=== PATIENT | female | born 1965 | race Two or more races ===

== ENCOUNTER 2023-02-04 18:06 | Emergency (ER) | payer OTHER, SELFPAY ==
[2023-02-04 18:10] VITALS: BP 163/81; PULSE 84; RESP 18; TEMP 36.8; O2SAT 99; BMI 41.6
--- NOTE | 2023-02-04 18:14 | ED.LOWEXI1 ---
HPI - Extremity Injury (Lower) General Chief Complaint: Extremity Injury, Lower Stated Complaint: LT FOOT INJURY/FALL Time Seen by Provider: 02/04/23 18:13 History of Present Illness HPI Narrative: Patient is a 57-year-old female who presents to the emergency department for the evaluation of a left lower leg injury. 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 She reports pain inferior to the left knee throughout the entire lower leg. She has had previous surgery to her left ankle. She denies hitting her head and had no other associated injuries. She has been able to bear weight since falling. She is not on blood thinners. Related Data Previous Rx's Medication Instructions Recorded ketorolac 10 mg tablet 10 mg PO TID PRN pain #10 tabs 02/04/23 Allergies Allergy/AdvReac Type Severity Reaction Status Date / Time No Known Drug Allergies Allergy Verified 02/04/23 18:09 Review of Systems ROS Constitutional Denies: fever or chills Ears, nose, mouth, and throat Denies: neck pain Respiratory Denies: shortness of breath Gastrointestinal Denies: nausea or vomiting Musculoskeletal Reports: extremity pain; Denies: back pain or neck pain Integumentary/Breast Denies: rash Neurological Denies: headache Hematologic/Lymphatic Denies: easy bruising Exam Narrative Exam Narrative: Gen.: Awake, alert, in no distress Head: Normocephalic, atraumatic; no facial or dental injuries noted ENT: Moist mucous membranes Respiratory: No respiratory distress Extremities: Moves extremities equally, faint abrasion on the left anterior tibia, midshaft. Diffuse tenderness of the left foot, left ankle and left tibia. No obvious deformity. No significant swelling or ecchymosis noted. Well-healed surgical incision in the lateral aspect over the lateral malleolus of the left ankle. 2+ left DP pulse. Psych: Normal mood and affect Neuro: No focal neuro deficit Skin: Warm, dry, intact MDM - Extremity Injury (Lower) MDM Narrative Medical decision making narrative: X-rays of the left tibia, left ankle and left foot with no evidence of fracture or dislocation. Patient treated with Windber in the Emergency Room. She is placed in an Tomas wrap, Aircast and remains neurovascularly intact. Rest, ice, elevate. Follow-up with PCP and return to the Emergency Room if symptoms change or worsen. Medical Records Attestation: I reviewed the patient's medical records. Imaging Data XR ankle: Attestation: I have reviewed the pertinent imaging results. Radiologist's impression: Procedure: XR ankle LT min 3V EXAM: XR ankle LT min 3V HISTORY: Fall COMPARISON: None. TECHNIQUE: 3 view study FINDINGS: 2 metallic anchors are seen in the distal aspect of the fibula. Bony architecture is otherwise normal. Ankle mortise relationships are intact. Lateral soft tissue swelling is noted. There is a plantar calcaneal enthesophyte. IMPRESSION: No evidence for acute fracture or traumatic malalignment. Electronically authenticated by: Laina RUBIO Date: 02/04/2023 19:09 XR tibia: Attestation: I have reviewed the pertinent imaging results. Radiologist's impression: Procedure: XR tibia fibula LT 2V EXAM: XR tibia fibula LT 2V HISTORY: Fall COMPARISON: None. TECHNIQUE: AP and lateral views FINDINGS: 2 small metallic anchors are seen in the distal fibula. Bony architecture of the tibia and fibula is otherwise normal. Articulations at knee and ankle are intact. A 4 mm calcification is seen adjacent to the medial tibial spine at the knee. IMPRESSION: 4 mm calcification adjacent to the medial tibial spine, potentially an intra-articular loose body. No evidence for acute fracture or dislocation. Electronically authenticated by: Laina RUBIO Date: 02/04/2023 19:11 XR foot: Attestation: I have reviewed the pertinent imaging results. Radiologist's impression: Procedure: XR foot LT min 3V EXAM: XR foot LT min 3V HISTORY: Fall COMPARISON: None. TECHNIQUE: 3 view study FINDINGS: Overall bony architecture is normal. 2 small calyx anchors are seen in the distal fibula. Joint spaces of the foot are well-maintained. Forefoot soft tissue swelling is noted. IMPRESSION: No evidence for acute fracture or dislocation. Electronically authenticated by: Laina RUBIO Date: 02/04/2023 19:13 Discharge Plan Discharge Chief Complaint: Extremity Injury, Lower Clinical Impression: Left ankle sprain Patient Disposition: Home, Self-Care Time of Disposition Decision: 19:18 Condition: Good Prescriptions / Home Meds: New ketorolac 10 mg tablet 10 mg PO TID PRN (Reason: pain) Qty: 10 0RF Instructions: Ankle Sprain (ED), P.R.I.C.E. Treatment (ED) Stand Alone Forms: Portal Instructions Referrals: Physician,Non-Staff, [Primary Care Provider] - 1 week
--- NOTE | 2023-02-04 18:22 | XR_ITS ---
The [address] [address] Patient Name: GREGORY WINSLOW MRN: [id number] date: 1965 Sex: F Assigned Patient Location: ER Current Patient Location: ER Accession/Order Number: [id number] Exam Date: 02/04/2023 18:28 Report Date: 02/04/2023 19:11 At the request of: SABIHA SALCEDO Procedure: XR tibia fibula LT 2V EXAM: XR tibia fibula LT 2V HISTORY: Fall COMPARISON: None. TECHNIQUE: AP and lateral views FINDINGS: 2 small metallic anchors are seen in the distal fibula. Bony architecture of the tibia and fibula is otherwise normal. Articulations at knee and ankle are intact. A 4 mm calcification is seen adjacent to the medial tibial spine at the knee. XR/XR tibia fibula LT 2V IMPRESSION: 4 mm calcification adjacent to the medial tibial spine, potentially an intra-articular loose body. No evidence for acute fracture or dislocation. Electronically authenticated by: Laina RUBIO Date: 02/04/2023 19:11
--- NOTE | 2023-02-04 18:22 | XR_ITS ---
The [address] [address] Patient Name: GREGORY WINSLOW MRN: [id number] date: 1965 Sex: F Assigned Patient Location: ER Current Patient Location: ED.MAIN Accession/Order Number: [id number] Exam Date: 02/04/2023 18:28 Report Date: 02/04/2023 19:09 At the request of: SABIHA SALCEDO Procedure: XR ankle LT min 3V EXAM: XR ankle LT min 3V HISTORY: Fall COMPARISON: None. TECHNIQUE: 3 view study FINDINGS: 2 metallic anchors are seen in the distal aspect of the fibula. Bony architecture is otherwise normal. Ankle mortise relationships are intact. Lateral soft tissue swelling is noted. There is a plantar calcaneal enthesophyte. XR/XR ankle LT min 3V IMPRESSION: No evidence for acute fracture or traumatic malalignment. Electronically authenticated by: Laina RUBIO Date: 02/04/2023 19:09
--- NOTE | 2023-02-04 18:22 | XR_ITS ---
The [address] [address] Patient Name: GREGORY WINSLOW MRN: [id number] date: 1965 Sex: F Assigned Patient Location: ER Current Patient Location: ER Accession/Order Number: [id number] Exam Date: 02/04/2023 18:28 Report Date: 02/04/2023 19:13 At the request of: SABIHA SALCEDO Procedure: XR foot LT min 3V EXAM: XR foot LT min 3V HISTORY: Fall COMPARISON: None. TECHNIQUE: 3 view study FINDINGS: Overall bony architecture is normal. 2 small calyx anchors are seen in the distal fibula. Joint spaces of the foot are well-maintained. Forefoot soft tissue swelling is noted. XR/XR foot LT min 3V IMPRESSION: No evidence for acute fracture or dislocation. Electronically authenticated by: Laina RUBIO Date: 02/04/2023 19:13
[2023-02-04] MEDS: HYDROCODONE/ACETAMINOPHEN 5-325 MG TABLET 1 TAB PO (18:33)
== END 2023-02-04 19:42 | disposition home or self-care (01) ==
PROVIDERS: Emergency Provider Student in an Organized Health Care Education/Training Program
DX: S93.402A Sprain of unspecified ligament of left ankle, initial encounter (principal); W10.1XXA Fall (on)(from) sidewalk curb, initial encounter
CPT/HCPCS: 73590; 73610; 73630; 99284

== ENCOUNTER 2023-04-23 19:29 | Outpatient (REF) | payer OTHER, MEDICARE, SELFPAY ==
[2023-04-28 21:07] LABS: Age Gdln ACOG Testing Note (.); HPV Aptima Negative (Negative); IGP, Aptima HPV, rfx 16/18,45 Note (.)
== END 2023-04-23 19:30 | disposition home or self-care (01) ==
LOC: LAB 19:29
PROVIDERS: Visit Provider Obstetrics & Gynecology
DX: Z01.419 Encounter for gynecological examination (general) (routine) without abnormal findings (principal)
CPT/HCPCS: 87624; G0145